=== PATIENT | male | born 1940 ===

== ENCOUNTER 2021-08-09 08:47 | Inpatient (IN) ==
[2021-08-09] MEDS ORDERED: Vancomycin 1,500 MG/265 ML IV.SOLN IVPB ONE (09:24)
[2021-08-09] MEDS ORDERED: 0.9 % Sodium Chloride 1,000 ML IVC SCH ×2 (09:30→16:40)
[2021-08-09] MEDS ORDERED: Heparin 1,000 UNITS/500 mL 1,500 ML ONE (09:53)
[2021-08-09] MEDS ORDERED: Vancomycin 1,000 MG VIAL ONE (09:54)
[2021-08-09] MEDS ORDERED: Albuterol 2.5 MG/3 ML NEBULIZER IH PRN (09:57)
[2021-08-09] MEDS ORDERED: *HR* OxyCODONE Immed Rel 5 MG TABLET PO PRN ×2 (09:57→16:40)
[2021-08-09] MEDS ORDERED: Ondansetron 4 MG/2 ML VIAL IVP PRN ×2 (09:57→16:40)
[2021-08-09] MEDS ORDERED: *HR* FentaNYL (PF) 100 MCG/2 ML VIAL IVP PRN (09:57)
[2021-08-09] MEDS ORDERED: *HR* Metoprolol 5 MG/5 ML VIAL IVP PRN (09:57)
[2021-08-09] MEDS ORDERED: Acetaminophen IV 1,000 MG/100 ML BAG IVPB ONE (09:57)
[2021-08-09] MEDS ORDERED: niCARdipine 40 MG/200 ML MLS IVC ONE (10:13)
[2021-08-09] MEDS ORDERED: Albumin Human 5% 25.0 GM/500 ML IV.SOLN ONE (10:15)
[2021-08-09] MEDS ORDERED: Vancomycin 1,000 MG, Sodium Chloride IRRigation 1,000 ML IR ONE (10:15)
[2021-08-09] MEDS ORDERED: CeFAZolin Syr 2,000MG/20 ML 2,000 MG/20 ML SYRINGE IVPB ONE (10:22)
[2021-08-09] MEDS ORDERED: *HR* Rocuronium Bromide 50 MG/5 ML VIAL ONE ×2 (12:35→12:36)
[2021-08-09] MEDS ORDERED: *HR* Propofol 200 MG/20 ML VIAL IVP ONE (12:35)
[2021-08-09] MEDS ORDERED: Lidocaine HCL 4 ML Topical Solution (Laryng-O-Jet Kit Sterile Pak) TP ONE (12:35)
[2021-08-09] MEDS ORDERED: Ondansetron 4 MG/2 ML VIAL ONE (12:35)
[2021-08-09] MEDS ORDERED: Lidocaine -MPF 2% 5 ML VIAL ONE (12:35)
[2021-08-09] MEDS ORDERED: *HR* FentaNYL (PF) 100 MCG/2 ML VIAL ONE (12:36)
[2021-08-09] MEDS ORDERED: EPHEDrine 50 MG/ML VIAL ONE (12:46)
[2021-08-09] MEDS ORDERED: NiCARdipine 2.5 MG/10 ML Syringe IVPB ONE (13:11)
[2021-08-09] MEDS ORDERED: Sugammadex Sodium 200 MG/2 ML VIAL IV ONE (14:25)
[2021-08-09] MEDS ORDERED: 0.9 % Sodium Chloride 500 ML ONE (15:48)
[2021-08-09] MEDS ORDERED: *HR* Dextrose 50 % in Water (Syg) 50 ML SYRINGE IVP PRN (16:40)
[2021-08-09] MEDS ORDERED: Naloxone 0.4 MG/ML INJ IVP PRN (16:40)
[2021-08-09] MEDS ORDERED: *HR* Labetalol 20 MG/4 ML SYRINGE IVP PRN (16:40)
[2021-08-09] MEDS ORDERED: *HR* HYDROcodone/Acet 5/325 mg TABLET PO PRN (16:40)
[2021-08-09] MEDS ORDERED: Dextrose Gel 15 GM/37.5 ML TUBE PO PRN ×2 (16:40)
[2021-08-09] MEDS ORDERED: Acetaminophen 325 MG TABLET PO PRN (16:40)
[2021-08-09] MEDS ORDERED: D5% in Water 1,000 ML IVC PRN (16:40)
[2021-08-09] MEDS: Insulin LISPRO 300 UNITS/3 ML VIAL SUBQ SCH (18:13)
[2021-08-09] MEDS: *HR* Metoprolol 5 MG/5 ML VIAL IVP SCH (18:14)
[2021-08-09] MEDS ORDERED: Insulin LISPRO 300 UNITS/3 ML VIAL SUBQ SCH (21:00)
[2021-08-09] MEDS: CeFAZolin 2 GM/120 ML BAG IVPB SCH (21:40)
[2021-08-10] MEDS: *HR* Metoprolol 5 MG/5 ML VIAL IVP SCH ×2 (00:19→05:16)
[2021-08-10 04:58] LABS: Basophils % 0.3 %; Hematocrit 43.3 % (37.5-50.1); Immature Granulocytes % 0.4 % (0-4); Lymphocytes # 0.9 K/mcL (0.6-4.6); Lymphocytes % 7.8 %; Mean Corpuscular HGB Conc 32.8 g/dL (31.6-35.5); Mean Corpuscular Hemoglobin 31.4 pg (28.0-33.3); Mean Corpuscular Volume 95.8 fL (83.0-100.0); Monocytes # 1.3 K/mcL (0.0-1.3); Monocytes % 11.5 %; Neutrophils # 9.4 K/mcL (1.6-8.9); Platelet Count 174 K/mcL (140-400); Red Blood Count 4.52 M/mcL (4.19-5.50); Red Cell Distribution Width 12.9 % (11.5-14.5); White Blood Count 11.7 K/mcL (4.3-11.1)
[2021-08-10 05:00] LABS: Hemoglobin 14.2 g/dL (12.9-16.9)
[2021-08-10] MEDS: CeFAZolin 2 GM/120 ML BAG IVPB SCH (05:16)
[2021-08-10 05:20] LABS: BUN/Creatinine Ratio 18 (6-26); Blood Urea Nitrogen 22 mg/dL (8-23); Calcium 8.2 mg/dL (8.6-10.3); Carbon Dioxide 25 mEq/L (23-29); Chloride 109 mEq/L (98-107); Glucose 144 mg/dL (70-105); Osmolality,Calculated 294 (280-300); Potassium 4.1 mEq/L (3.5-5.1); Sodium 139 mEq/L (136-145); eGFR For African Americans > 60 (> 60); eGFR For Non-African Americans 55 (> 60)
[2021-08-10] MEDS ORDERED: *HR* Heparin 5,000 UNIT/ML VIAL SQ SCH (06:00)
[2021-08-10] MEDS: Insulin LISPRO 300 UNITS/3 ML VIAL SUBQ SCH ×3 (07:32→12:05)
[2021-08-10] MEDS ORDERED: Loratadine 10 MG TABLET PO SCH (09:00)
[2021-08-10] MEDS ORDERED: hydroCHLOROthiazide 25 MG TABLET PO SCH (09:00)
[2021-08-10] MEDS ORDERED: Aspirin Enteric Coated 81 MG Tablet PO SCH (09:00)
[2021-08-10] MEDS ORDERED: Metoprolol XL (24 HR) Succ 25 MG TAB.ER.24H PO SCH (09:00)
[2021-08-10] MEDS ORDERED: Venlafaxine XR (24 HR) 150 MG CAP.ER.24H PO SCH (09:00)
[2021-08-10 11:37] VITALS: BP 140/74; PULSE 64; TEMP 97.7; O2SAT 95
[2021-08-12] MEDS ORDERED: *HR* Metformin 500 MG TABLET PO SCH (09:00)
== END 2021-08-10 14:15 | disposition home or self-care (01) | DRG 272 ==
LOC: SAMDAY 08:47 → 2NNU 16:20
PROVIDERS: ADMIT Surgery; ATTEND Surgery